=== PATIENT | female | born 1970 | race Caucasian/White ===

== ENCOUNTER 2017-11-15 23:13 | Emergency (ER) | payer OTHER ==
[~2017-11-15] VITALS: Ht 160 cm; Wt 59.0 kg
--- NOTE | 2017-11-15 23:19 | NUR ---
PT AMBULATORY TO ER BED 6. LOWER PELVIC PAIN, INFLAMMATION X 2 WKS, DENIES VB, TAKING FLAGYL W/ NO IMPROVEMENT. PT STATES SHE HAS BEEN TO SEVERAL ER'S FOR SAME. 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 VSS/RESP EVEN UNLABORED/NAD NOTED/SKIN WARM AND DRY/AFEBRILE/DENIES N-V-D/AOX4. AWAITNG MD FELTON.
--- NOTE | 2017-11-15 23:23 | NUR ---
URINE SPECIMEN OBTAINED AND SENT TO THE LAB.
--- NOTE | 2017-11-15 23:50 | NUR ---
AT BEDSIDE FOR EVAL.
[2017-11-16] MEDS ORDERED: oxyCODONE/APAP (5/325 MG) 1 UDTAB TABLET PO ONE
[2017-11-16] MEDS ORDERED: oxyCODONE/APAP (5/325 MG) 1 UDTAB TABLET ONE (00:04)
--- NOTE | 2017-11-16 00:08 | NUR ---
PELVIC SETUP AT BEDSIDE PER MD ORDERS.
[2017-11-16 00:33] LABS: APPEARANCE,URINE CLEAR (CLEAR); BILIRUBIN,URINE NEGATIVE (NEGATIVE); BLOOD, URINE NEGATIVE Ery/uL (NEGATIVE); COLOR,URINE YELLOW (YELLOW); KETONES,URINE NEGATIVE (NEGATIVE); LEUKOCYTE ESTERASE ,URINE NEGATIVE (NEGATIVE); NITRITE, URINE NEGATIVE (NEGATIVE); PROTEIN,URINE NEGATIVE (NEGATIVE); UGLUCOSE NEGATIVE (NEGATIVE); UROBILINOGEN,URINE 0.2 EU/dL (0.2)
--- NOTE | 2017-11-16 00:45 | NUR ---
BRENDA AT BEDSIDE
--- NOTE | 2017-11-16 00:53 | NUR ---
ULTRASOUND AT BEDSIDE.
--- NOTE | 2017-11-16 02:26 | NUR ---
Patient discharged with friend to home in stable condition. Written and verbal after care instructions given,patient instructed not to drive. Patient verbalizes understanding of instruction. Patient ambulatory with a steady gait. Patient is awake and alert to self, day, and place.
[2017-11-16 02:27] VITALS: BP 124/71
== END 2017-11-16 02:28 | disposition home or self-care (01) ==
LOC: ER 23:17
DX: R10.2 Pelvic and perineal pain (principal); E03.9 Hypothyroidism, unspecified; N73.9 Female pelvic inflammatory disease, unspecified
CPT/HCPCS: 76856; 81001; 84703; 87210; 99285; A4606; A6402; Z7610; 81000-TC

== ENCOUNTER 2017-11-21 20:08 | Emergency (ER) | payer OTHER ==
[~2017-11-21] VITALS: Ht 160 cm; Wt 66.2 kg
[2017-11-21 20:26] VITALS: BP 133/78
--- NOTE | 2017-11-21 20:49 | NUR ---
DR WALKER T [facility] FOR EVAL.
[2017-11-21] MEDS ORDERED: oxyCODONE/APAP (5/325 MG) 1 UDTAB TABLET PO ONE (21:00)
[2017-11-21] MEDS ORDERED: oxyCODONE/APAP (5/325 MG) 1 UDTAB TABLET ONE (21:06)
[2017-11-21] MEDS ORDERED: CEFTRIAXONE 500 MG VIAL IM ONE (21:30)
[2017-11-21] MEDS ORDERED: CEFTRIAXONE 500 MG VIAL ONE (21:37)
[2017-11-21] MEDS ORDERED: LIDOCAINE /MPF 1% VIAL 5 ML VIAL ONE (21:37)
== END 2017-11-21 22:09 | disposition home or self-care (01) ==
LOC: ER 20:11
DX: R10.2 Pelvic and perineal pain (principal); E03.9 Hypothyroidism, unspecified
CPT/HCPCS: 87491; 87591; A4606; J0696; J3490; Z7610

== ENCOUNTER 2017-12-12 01:41 | Emergency (ER) | payer OTHER ==
[~2017-12-12] VITALS: Ht 157.5 cm; Wt 59.0 kg
[2017-12-12 01:44] VITALS: BP 125/79
[2017-12-12 02:11] LABS: APPEARANCE,URINE SL CLOUDY (CLEAR); BILIRUBIN,URINE NEGATIVE (NEGATIVE); BLOOD, URINE NEGATIVE Ery/uL (NEGATIVE); COLOR,URINE YELLOW (YELLOW); KETONES,URINE NEGATIVE (NEGATIVE); LEUKOCYTE ESTERASE ,URINE NEGATIVE (NEGATIVE); NITRITE, URINE NEGATIVE (NEGATIVE); PH,URINE 6.5 (5.0-8.0); PROTEIN,URINE NEGATIVE (NEGATIVE); UGLUCOSE NEGATIVE (NEGATIVE); UROBILINOGEN,URINE 0.2 EU/dL (0.2)
== END 2017-12-12 02:40 | disposition home or self-care (01) ==
LOC: ER 01:44
DX: N89.8 Other specified noninflammatory disorders of vagina (principal); E03.9 Hypothyroidism, unspecified
CPT/HCPCS: 81001; 99283; A4606; Z7610; 81000-TC

== ENCOUNTER 2018-02-28 15:33 | Emergency (ER) | payer OTHER ==
[~2018-02-28] VITALS: Ht 157.5 cm; Wt 61.2 kg
--- NOTE | 2018-02-28 15:51 | NUR ---
BIB SELF, C/O VAGINAL ABSCESS 1 1/2 WEEK, BURNING SENSATION IN VAGINAL AREA. WENT TO HER [facility] FRIDAY AND DX YEAST INFX, VAG CREAM Rx. PT APPEARS VERY ANXIOUS AND PANICKY. STATES SHE HAD CULTURES DONE AND IS WAITING FOR RESULTS. AOX4, AMBULATORY, VSS, RR EVEN AND UNLABORED. SKIN INTACT. SEEN BY BAR PLUMMER. WAITING FOR ORDERS
--- NOTE | 2018-02-28 16:14 | NUR ---
Patient discharged to home in stable condition. Written and verbal after care instructions given. Patient verbalizes understanding of instruction.
[2018-02-28 16:46] VITALS: BP 125/60
== END 2018-02-28 16:14 | disposition home or self-care (01) ==
LOC: ER 15:36
DX: N76.0 Acute vaginitis (principal); E03.9 Hypothyroidism, unspecified; F41.9 Anxiety disorder, unspecified; N73.9 Female pelvic inflammatory disease, unspecified
CPT/HCPCS: A4606

== ENCOUNTER 2018-05-31 04:21 | Emergency (ER) | payer OTHER ==
[~2018-05-31] VITALS: Ht 157.5 cm; Wt 59.0 kg
--- NOTE | 2018-05-31 05:00 | NUR ---
PT PRESENTED TO THE ER WITH A C/O VAGINAL PAIN. PT HAS ALREADY BEEN TREATED FOR BACTERIAL VAGINOSIS. PT IS CRYING AND WANTS MEDICINE TO STOP THE PAIN. PT WAS SEEN BY DR. BRYAN.
--- NOTE | 2018-05-31 05:20 | NUR ---
PELVIC EXAM IN PROGRESS. Female waxer floor accompanied female patient for DR BRYAN.
[2018-05-31 05:24] LABS: APPEARANCE,URINE CLEAR (CLEAR); BILIRUBIN,URINE NEGATIVE (NEGATIVE); BLOOD, URINE NEGATIVE Ery/uL (NEGATIVE); COLOR,URINE YELLOW (YELLOW); KETONES,URINE TRACE (NEGATIVE); LEUKOCYTE ESTERASE ,URINE TRACE (NEGATIVE); NITRITE, URINE NEGATIVE (NEGATIVE); PROTEIN,URINE NEGATIVE (NEGATIVE); UGLUCOSE NEGATIVE (NEGATIVE); UROBILINOGEN,URINE 0.2 EU/dL (0.2)
[2018-05-31] MEDS ORDERED: CEFTRIAXONE 1 G VIAL IM ONE (05:30)
[2018-05-31] MEDS ORDERED: AZITHROMYCIN 250 MG TABLET PO ONE (05:30)
[2018-05-31] MEDS ORDERED: HYDROCODONE/APAP 5/325MG 1 EACH TABLET PO ONE (05:30)
[2018-05-31] MEDS ORDERED: LIDOCAINE /MPF 1% VIAL 5 ML VIAL ONE (05:32)
[2018-05-31] MEDS ORDERED: AZITHROMYCIN 250 MG TABLET ONE (05:32)
[2018-05-31] MEDS ORDERED: HYDROCODONE/APAP 5/325MG 1 EACH TABLET ONE (05:32)
[2018-05-31] MEDS ORDERED: CEFTRIAXONE 500 MG VIAL ONE (05:32)
[2018-05-31 05:40] LABS: BACTERIA,URINE Rare /HPF (None Seen); RBC,URINE 0-2 /HPF (0-2); SQUAMOUS EPITHELIAL CELL,UR Few /HPF (None Seen); WBC,URINE 0-2 /HPF (0-3)
--- NOTE | 2018-05-31 05:55 | NUR ---
Patient discharged to home in stable condition. Written and verbal after care instructions given. Patient verbalizes understanding of instruction AND RX. PT AMBULATED OUT WITH A STEADY GAIT. VSS.
[2018-05-31 05:57] VITALS: BP 129/70
== END 2018-05-31 06:00 | disposition home or self-care (01) ==
LOC: ER 04:29
DX: N94.10 Unspecified dyspareunia (principal); N72 Inflammatory disease of cervix uteri; E03.9 Hypothyroidism, unspecified
CPT/HCPCS: 81001; 84703; 87070; 87081; 87086; 87110; 87210; 87491; 87591; 96372; 99283; J0696; J3490; 81000-TC

== ENCOUNTER 2018-06-09 22:45 | Emergency (ER) | payer OTHER ==
[~2018-06-09] VITALS: Ht 157.5 cm; Wt 59.0 kg
[2018-06-09 23:29] VITALS: BP 110/66
== END 2018-06-10 01:07 | disposition home or self-care (01) ==
LOC: ER 22:46
DX: R10.2 Pelvic and perineal pain (principal); R20.2 Paresthesia of skin; E03.9 Hypothyroidism, unspecified

== ENCOUNTER 2018-11-05 12:45 | Emergency (ER) | payer OTHER ==
[~2018-11-05] VITALS: Ht 157.5 cm; Wt 63.5 kg
[2018-11-05 13:09] VITALS: BP 101/67
== END 2018-11-05 14:03 | disposition home or self-care (01) ==
LOC: ER 12:47
DX: R07.89 Other chest pain (principal); E03.9 Hypothyroidism, unspecified

== ENCOUNTER 2019-02-23 01:13 | Emergency (ER) | payer OTHER ==
[~2019-02-23] VITALS: Ht 160 cm; Wt 60.3 kg
[2019-02-23] MEDS ORDERED: FLUCONAZOLE (100 MG) 100 MG TABLET ONE (01:24)
[2019-02-23] MEDS ORDERED: FLUCONAZOLE (100 MG) 100 MG TABLET PO ONE (01:30)
[2019-02-23 01:36] VITALS: BP 112/76
== END 2019-02-23 01:39 | disposition home or self-care (01) ==
LOC: ER 01:14
DX: B37.9 Candidiasis, unspecified (principal); E03.9 Hypothyroidism, unspecified

== ENCOUNTER 2019-10-04 15:19 | Emergency (ER) | payer OTHER ==
[~2019-10-04] VITALS: Ht 157.5 cm; Wt 61.2 kg
--- NOTE | 2019-10-04 15:59 | NUR ---
BIBS FROM HOME TO ER BED 7. AAOX4. NOT IN RESP DISTRESS. AMBULATORY ON STEADY GAIT. CAME IN FOR R SIDE HEAD/FACE PAIN X 2 WEEKS. NO TRAUMA NOTED, NO SWELLING. PAIN IS RATED 9/10. PT REPORTS THAT NO MEDICATION WORKS FOR THE PAIN. LAST TAKEN MED WAS MOTRIN THIS MORNING. AWAITING MD FOR PURNIMA
[2019-10-04 16:57] LABS: EOSINOPHILS % (AUTO) 2.9 % (0.0-6.0); HEMATOCRIT 41 % (33-45); HEMOGLOBIN 13.3 g/dL (11.5-14.8); LYMPHOCYTES # (AUTO) 1.6 /CMM (0.8-4.8); LYMPHOCYTES % (AUTO) 33.3 % (20.0-44.0); MEAN CORPUSCULAR HGB CONC 32 g/dl (31.0-36.0); MEAN CORPUSCULAR VOLUME 81 fL (82-100); MONOCYTES # (AUTO) 0.5 /CMM (0.1-1.30); MONOCYTES % (AUTO) 10.6 % (2.0-12.0); NEUTROPHILS # (AUTO) 2.5 /CMM (1.8-8.9); NEUTROPHILS % (AUTO) 52.2 % (43.0-81.0); PLATELET COUNT (AUTO) 213 /CMM (150-450); RED BLOOD CELL COUNT(AUTO) 5.09 MIL/uL (4.0-5.2); WHITE BLOOD COUNT (AUTO) 4.8 K/uL (4.3-11.0)
[2019-10-04 17:51] LABS: CALCIUM, SERUM 9.2 mg/dL (8.5-10.1); CREATININE 0.8 mg/dL (0.6-1.3); POTASSIUM 3.8 mmol/L (3.5-5.1)
[2019-10-04] MEDS ORDERED: KETOROLAC TROMETHAMINE INJ 30 MG/ML VIAL IV ONE (18:30)
[2019-10-04] MEDS ORDERED: METOCLOPRAMIDE HCL 10 MG/2 ML VIAL IV ONE (18:30)
[2019-10-04] MEDS ORDERED: METOCLOPRAMIDE HCL 10 MG/2 ML VIAL ONE (18:31)
[2019-10-04] MEDS ORDERED: KETOROLAC TROMETHAMINE INJ 30 MG/ML VIAL ONE (18:31)
[2019-10-04 19:04] VITALS: BP 112/65
--- NOTE | 2019-10-04 19:04 | NUR ---
Patient discharged to home in stable condition. Written and verbal after care instructions given. Patient verbalizes understanding of instruction.IV removed. Catheter intact and site benign. Pressure and 4x4 applied to site. No bleeding noted. Pt ambulatory with a steady gait
== END 2019-10-04 19:05 | disposition home or self-care (01) ==
LOC: ER 15:23
DX: R51 Headache (principal); E03.9 Hypothyroidism, unspecified
CPT/HCPCS: 36415; 70450; 80048; 84702; 85025; 96374; 96375; 99284; A4216; J1885; J2765

== ENCOUNTER 2021-03-05 21:51 | Emergency (ER) | payer OTHER ==
[~2021-03-05] VITALS: Ht 157.5 cm; Wt 63.5 kg
--- NOTE | 2021-03-05 22:20 | NUR ---
BIBS FOR C/O WHITE VAGINAL DISCHARGES AND ITCHINESS. PT CHANGED INTO A GOWN AND PLACED ON A MONITOR. BREATHING IS EVEN AND UNLABORED AND ALL V/S STABLE. PROVIDED WARM BLANKET AND CALL LIGHT WITHIN REACH.
--- NOTE | 2021-03-05 22:57 | NUR ---
VAGINAL WET MOUNT SWAB COLLECTED BY DR. SCHULTZ AND SENT TO LAB
[2021-03-05] MEDS ORDERED: LIDOCAINE HCL/PF 2 % 5ML SDV 5 ML VIAL ONE (22:59)
[2021-03-05] MEDS ORDERED: CEFTRIAXONE 1 G VIAL ONE (22:59)
[2021-03-05] MEDS ORDERED: FLUCONAZOLE (100 MG) 100 MG TABLET ONE ×2 (22:59→23:05)
[2021-03-05] MEDS ORDERED: METRONIDAZOLE 500 MG TABLET PO ONE (23:00)
[2021-03-05] MEDS ORDERED: FLUCONAZOLE (100 MG) 100 MG TABLET PO ONE (23:00)
[2021-03-05] MEDS ORDERED: CEFTRIAXONE 1 G VIAL IM ONE (23:00)
[2021-03-05] MEDS ORDERED: LIDOCAINE HCL/PF 1% 30 ML SDV ONE (23:02)
[2021-03-05] MEDS ORDERED: METR500T PO (23:04)
[2021-03-05] MEDS ORDERED: FLUC200T PO (23:04)
[2021-03-05] MEDS ORDERED: METRONIDAZOLE 500 MG TABLET ONE (23:09)
--- NOTE | 2021-03-05 23:16 | NUR ---
Patient discharged to home in stable condition. Written and verbal after care instructions given. Patient verbalizes understanding of instruction.
[2021-03-05 23:19] VITALS: BP 98/52
== END 2021-03-05 23:19 | disposition home or self-care (01) ==
LOC: ER 21:52
DX: N76.0 Acute vaginitis (principal); E03.9 Hypothyroidism, unspecified; Z86.19 Personal history of other infectious and parasitic diseases; Z79.2 Long term (current) use of antibiotics
CPT/HCPCS: 87210; 99283; J0696; J3490

== ENCOUNTER 2021-05-27 11:44 | Emergency (ER) | payer OTHER ==
[~2021-05-27] VITALS: Ht 157.5 cm; Wt 63.5 kg
[~2021-05-27 11:44] MED LIST: FLUC200T PO; METR500T PO
[2021-05-27 11:45] VITALS: BP 99/55
--- NOTE | 2021-05-27 11:48 | NUR ---
AT BEDSIDE FOR EVAL.
[2021-05-27] MEDS ORDERED: FLUC200T8 PO (11:54)
[2021-05-27] MEDS ORDERED: AMOX-430 PO (11:54)
--- NOTE | 2021-05-27 12:22 | NUR ---
Patient discharged to home in stable condition. Written and verbal after care instructions given. Patient verbalizes understanding of instruction.
== END 2021-05-27 12:23 | disposition home or self-care (01) ==
LOC: ER 11:45
DX: J01.90 Acute sinusitis, unspecified (principal); E03.9 Hypothyroidism, unspecified; Z79.899 Other long term (current) drug therapy

== ENCOUNTER 2021-05-30 14:54 | Emergency (ER) | payer OTHER ==
[~2021-05-30] VITALS: Ht 157.5 cm; Wt 63.5 kg
[~2021-05-30 14:54] MED LIST changes: +AMOX-430 PO; +FLUC200T8 PO
[2021-05-30 15:03] VITALS: BP 115/65
[2021-05-30] MEDS ORDERED: FLUT16SP BNOSTRILS ×2 (16:20→16:21)
[2021-05-30] MEDS ORDERED: PRED20TA PO (19:06)
== END 2021-05-30 16:29 | disposition home or self-care (01) ==
LOC: ER 14:55
DX: R09.82 Postnasal drip (principal); R05.9 Cough, unspecified; E03.9 Hypothyroidism, unspecified; Z79.899 Other long term (current) drug therapy
CPT/HCPCS: 71045-TC

== ENCOUNTER 2021-12-15 12:41 | Emergency (ER) | payer OTHER ==
[~2021-12-15] VITALS: Ht 157.5 cm; Wt 68.0 kg
[~2021-12-15 12:41] MED LIST changes: +FLUT16SP BNOSTRILS; +PRED20TA PO
[2021-12-15 13:20] VITALS: BP 114/70
--- NOTE | 2021-12-15 13:30 | NUR ---
"Been having cough/congestion/CHEEMA/ear ache now feeling worse". AMBULATORY, PLACED ON BED, AAOX4, BREATHING EVEN AND UNLABORED.
--- NOTE | 2021-12-15 13:39 | NUR ---
SWAB FOR COVID19 AND RAPID GROUP STREP A SENT TO LAB
[2021-12-15] MEDS ORDERED: GUAI120013 PO (15:30)
[2021-12-15] MEDS ORDERED: NAPR-1192 PO (15:30)
--- NOTE | 2021-12-15 16:00 | NUR ---
Kranthi sanz in ED - 12/15/21 at 1610 by MK Patient discharged to home in stable condition. Written and verbal after care instructions given. Patient verbalizes understanding of instruction.
--- NOTE | 2021-12-15 16:08 | NUR ---
swab for pcr sent to lab
--- NOTE | 2021-12-15 16:10 | NUR ---
Patient discharged to home in stable condition. Written and verbal after care instructions given. Patient verbalizes understanding of instruction.
== END 2021-12-15 16:08 | disposition home or self-care (01) ==
LOC: ER 12:46
DX: J02.9 Acute pharyngitis, unspecified (principal); H92.01 Otalgia, right ear; B34.9 Viral infection, unspecified; Z20.822 Contact with and (suspected) exposure to COVID-19; H61.21 Impacted cerumen, right ear; Z28.310 Unvaccinated for COVID-19; Z28.1 Immunization not carried out because of patient decision for reasons of belief or group pressure; E03.9 Hypothyroidism, unspecified; Z86.16 Personal history of COVID-19
CPT/HCPCS: 99283; 87426; 87070; 87880; U0003; C9803 ×2; 86403-TC

== ENCOUNTER 2023-01-13 19:54 | Emergency (ER) | payer OTHER ==
[~2023-01-13] VITALS: Ht 157.5 cm; Wt 64.0 kg
[~2023-01-13 19:54] MED LIST changes: +GUAI120013 PO; +NAPR-1192 PO
[2023-01-13] MEDS ORDERED: HYDROCODONE/APAP 5/325MG TABLET ONE (21:09)
[2023-01-13] MEDS ORDERED: HYDROCODONE/APAP 5/325MG TABLET PO ONE ×2 (21:30)
[2023-01-13 21:31] LABS: BASOPHILS % (AUTO) 0.4 % (0.0-2.0); EOSINOPHILS # (AUTO) 0.1 K/uL (0.0-0.7); EOSINOPHILS % (AUTO) 2.3 % (0.0-6.0); HEMATOCRIT 40 % (33-45); HEMOGLOBIN 12.6 g/dL (11.5-14.8); LYMPHOCYTES # (AUTO) 1.7 K/uL (0.8-4.8); LYMPHOCYTES % (AUTO) 28.1 % (20.0-44.0); MEAN CORPUSCULAR HEMOGLOBIN 26 PG (26.0-33.0); MEAN CORPUSCULAR HGB CONC 32 g/dl (31.0-36.0); MEAN CORPUSCULAR VOLUME 80 fL (82-100); MONOCYTES # (AUTO) 0.5 K/uL (0.1-1.30); MONOCYTES % (AUTO) 8.5 % (2.0-12.0); NEUTROPHILS # (AUTO) 3.8 K/uL (1.8-8.9); NEUTROPHILS % (AUTO) 60.7 % (43.0-81.0); PLATELET COUNT (AUTO) 206 K/uL (150-450); RED BLOOD CELL COUNT(AUTO) 4.93 MIL/uL (4.0-5.2); RED CELL DISTRIBUTION WIDTH 14.5 % (11.5-15.0); WHITE BLOOD COUNT (AUTO) 6.2 K/uL (4.3-11.0)
[2023-01-13 21:38] LABS: CALCIUM, SERUM 9.2 mg/dL (8.5-10.1); CREATININE 0.9 mg/dL (0.6-1.3); POTASSIUM 3.5 mmol/L (3.5-5.1)
[2023-01-13 21:45] LABS: BILIRUBIN,DIRECT 0.1 mg/dL (0.0-0.2); BILIRUBIN,TOTAL 0.4 mg/dL (0.2-1.0); TOTAL PROTEIN, SERUM 7.6 g/dL (6.4-8.2)
[2023-01-13 21:51] LABS: APPEARANCE,URINE CLEAR (CLEAR); BILIRUBIN,URINE NEGATIVE (NEGATIVE); BLOOD, URINE NEGATIVE Ery/uL (NEGATIVE); COLOR,URINE YELLOW (YELLOW); KETONES,URINE NEGATIVE (NEGATIVE); LEUKOCYTE ESTERASE ,URINE NEGATIVE (NEGATIVE); NITRITE, URINE NEGATIVE (NEGATIVE); PH,URINE 5.5 (5.0-8.0); PROTEIN,URINE NEGATIVE (NEGATIVE); UGLUCOSE NEGATIVE (NEGATIVE); UROBILINOGEN,URINE 0.2 EU/dL (0.2)
[2023-01-13] MEDS ORDERED: KETO10TA2 PO (22:47)
[2023-01-13 22:56] VITALS: BP 125/65; TEMP 98.4; O2SAT 98
== END 2023-01-13 22:56 | disposition home or self-care (01) ==
LOC: ER 19:56
DX: M54.50 Low back pain, unspecified (principal); R10.2 Pelvic and perineal pain; E03.9 Hypothyroidism, unspecified; Z86.16 Personal history of COVID-19
CPT/HCPCS: 36415; 72131-TC; 80048-TC; 80076-TC; 84702-TC; 85025-TC